=== PATIENT | male | born 1940 | race Caucasian/White ===

== ENCOUNTER 2020-10-02 15:43 | Inpatient (IN) ==
[2020-10-02] MEDS ORDERED: SODIUM CHLORIDE 0.9% 500 ML IV STA (16:35)
[2020-10-02] MEDS ORDERED: ONDANSETRON 4 MG/2 ML VIAL IV STA (16:35)
[2020-10-02 16:45] LABS: Basophils # 0.1 10*3/uL (0.0-0.2); Basophils % 0.5 % (0.0-0.8); Eosinophils # 0.3 10*3/uL (0.0-0.87); Hematocrit 39.3 VOL% (42.0-52.0); Hemoglobin 12.6 GM/DL (14.0-18.0); Immature Granulocytes % 0.5 %; Immature Granulocytes Absolute 0.05 #; Lymphocytes # 2.6 10*3/uL (1.4-4.0); Lymphocytes % 27.8 % (21.2-54.2); Mean Corpuscular HGB Conc 32.1 GM/DL (32-36); Mean Corpuscular Volume 78.1 FL (87-102); Monocytes % 13.4 % (1.7-12.7); Neutrophils % 54.8 % (38.7-73.9); Platelet Count 314 T/CUMM (130-400); Red Blood Count 5.03 MC/CUMM (3.8-5.5); Red Cell Distribution Width 15.7 % (9.3-17.3); White Blood Count 9.4 T/CUMM (4-12)
[2020-10-02 16:56] LABS: INR 2.6
[2020-10-02 16:58] LABS: PT Patient Result 26.9 SECS (10.5-12.0)
[2020-10-02 17:04] LABS: Albumin 3.4 G/DL (3.4-5.0); Bilirubin,Total 0.4 MG/DL (0.2-1.0); Calcium 8.8 MG/DL (8.5-10.1); Osmolality,Calculated 277.1 MOS/KG (273-304); Potassium 3.9 MMOL/L (3.5-5.1); Total Protein 7.9 G/DL (6.4-8.2)
[2020-10-02] MEDS ORDERED: DEXTROSE 50% 25 GM/50 ML VIAL IV PRN ×2 (18:48→19:17)
[2020-10-02] MEDS ORDERED: ONDANSETRON 4 MG/2 ML VIAL IV PRN (18:48)
[2020-10-02] MEDS ORDERED: GLUCAGON 1 MG VIAL IM PRN ×2 (18:48→19:17)
[2020-10-02] MEDS ORDERED: ACETAMINOPHEN 325 MG TABLET PO PRN (18:48)
[2020-10-02] MEDS: SODIUM CHLORIDE 0.9% 1,000 ML IV SCH (19:45)
[2020-10-02] MEDS ORDERED: FERRIC GLUCONATE COMPLEX 62.5 MG in SODIUM CHLORIDE 0.9% 100 ML IV ONE (21:30)
[2020-10-02] MEDS: INSULIN LISPRO 100 UNIT/ML SUBCUT SCH (21:34)
[2020-10-02] MEDS ORDERED: IRON SUCROSE 200 MG in SODIUM CHLORIDE 0.9% 100 ML IV SCH (22:00)
[2020-10-02 23:25] LABS: Hematocrit 38.6 VOL% (42.0-52.0); Hemoglobin 11.7 GM/DL (14.0-18.0)
[2020-10-03 05:02] LABS: Basophils # 0.1 10*3/uL (0.0-0.2); Basophils % 0.6 % (0.0-0.8); Eosinophils # 0.4 10*3/uL (0.0-0.87); Eosinophils % 3.9 % (0.00-10.9); Hemoglobin 11.8 GM/DL (14.0-18.0); Immature Granulocytes % 0.5 %; Immature Granulocytes Absolute 0.05 #; Lymphocytes # 3.2 10*3/uL (1.4-4.0); Lymphocytes % 31.4 % (21.2-54.2); Mean Corpuscular HGB Conc 31.1 GM/DL (32-36); Mean Corpuscular Volume 79.5 FL (87-102); Mean Platelet Volume 9.8 FL (9.6-12.0); Monocytes % 12.8 % (1.7-12.7); Neutrophils % 50.8 % (38.7-73.9); Platelet Count 309 T/CUMM (130-400); Red Blood Count 4.78 MC/CUMM (3.8-5.5); Red Cell Distribution Width 15.6 % (9.3-17.3)
[2020-10-03 05:12] LABS: Albumin 3.2 G/DL (3.4-5.0); Bilirubin,Total 0.8 MG/DL (0.2-1.0); Calcium 8.8 MG/DL (8.5-10.1); Osmolality,Calculated 275.8 MOS/KG (273-304); Potassium 4.2 MMOL/L (3.5-5.1); Total Protein 7.4 G/DL (6.4-8.2)
[2020-10-03] MEDS: PANTOPRAZOLE 40 MG TABLET PO SCH (08:42)
[2020-10-03] MEDS: INSULIN LISPRO 100 UNIT/ML SUBCUT SCH ×4 (10:17→21:24)
[2020-10-03 11:03] LABS: Hematocrit 36.1 VOL% (42.0-52.0); Hemoglobin 11.1 GM/DL (14.0-18.0)
[2020-10-03] MEDS: CIPROFLOXACIN INJ 400 MG/200 ML PREMIX IV SCH ×3 (11:19→23:09)
[2020-10-03] MEDS: metroNIDAZOLE INJ 500 MG/100 ML PREMIX IV SCH ×2 (13:46→23:10)
[2020-10-03] MEDS: SODIUM CHLORIDE 0.9% 1,000 ML IV SCH (16:29)
[2020-10-03 16:49] LABS: Hematocrit 37.4 VOL% (42.0-52.0); Hemoglobin 11.7 GM/DL (14.0-18.0)
[2020-10-03] MEDS: FLECAINIDE 50 MG TABLET PO SCH (20:20)
[2020-10-03] MEDS ORDERED: ATORVASTATIN 40 MG TABLET PO SCH (21:00)
[2020-10-03 21:56] LABS: Hematocrit 38.1 VOL% (42.0-52.0); Hemoglobin 11.8 GM/DL (14.0-18.0)
[2020-10-04 05:44] LABS: Basophils # 0.1 10*3/uL (0.0-0.2); Basophils % 0.8 % (0.0-0.8); Eosinophils # 0.4 10*3/uL (0.0-0.87); Eosinophils % 5.4 % (0.00-10.9); Hematocrit 35.9 VOL% (42.0-52.0); Hemoglobin 11.4 GM/DL (14.0-18.0); Immature Granulocytes % 0.5 %; Immature Granulocytes Absolute 0.03 #; Lymphocytes % 30.7 % (21.2-54.2); Mean Corpuscular HGB Conc 31.8 GM/DL (32-36); Mean Corpuscular Volume 79.1 FL (87-102); Mean Platelet Volume 9.9 FL (9.6-12.0); Monocytes % 15.9 % (1.7-12.7); Neutrophils % 46.7 % (38.7-73.9); Platelet Count 270 T/CUMM (130-400); Red Blood Count 4.54 MC/CUMM (3.8-5.5); Red Cell Distribution Width 15.4 % (9.3-17.3); White Blood Count 6.5 T/CUMM (4-12)
[2020-10-04 05:59] LABS: Calcium 8.8 MG/DL (8.5-10.1); Osmolality,Calculated 277.5 MOS/KG (273-304); Potassium 4.3 MMOL/L (3.5-5.1)
[2020-10-04 06:07] LABS: Eosinophils 7 % (0-10); Hypochromasia 1+; Lymphocytes 31 % (20-55); Microcytosis 1+; Platelet Estimate Adequate; Segmented Neutrophils 52 % (50-85); Total Cells Counted 100
[2020-10-04] MEDS: INSULIN LISPRO 100 UNIT/ML SUBCUT SCH ×2 (07:25→11:18)
[2020-10-04] MEDS: FLECAINIDE 50 MG TABLET PO SCH (08:32)
[2020-10-04] MEDS: PANTOPRAZOLE 40 MG TABLET PO SCH (08:32)
[2020-10-04] MEDS ORDERED: DILTIAZEM CD 120 MG CAPSULE PO SCH (09:00)
[2020-10-04] MEDS: CIPROFLOXACIN INJ 400 MG/200 ML PREMIX IV SCH (10:55)
[2020-10-04] MEDS ORDERED: ASPIRIN EC 325 MG TABLET PO SCH (11:00)
[2020-10-04] MEDS ORDERED: DEXTROSE 50% 25 GM/50 ML VIAL IV PRN (11:11)
[2020-10-04] MEDS ORDERED: GLUCAGON 1 MG VIAL IM PRN (11:11)
[2020-10-04 11:55] VITALS: BP 132/72
[2020-10-04] MEDS: metroNIDAZOLE INJ 500 MG/100 ML PREMIX IV SCH (12:13)
== END 2020-10-04 13:35 | disposition home or self-care (01) | DRG 813 ==
LOC: N.ED 15:43 → N.EDINP 15:43 → N.3E 21:47
PROVIDERS: ADMIT Hospitalist; ATTEND Hospitalist